=== PATIENT | male | born 1930 | race African-American/Black ===

== ENCOUNTER 2017-10-18 20:24 | Emergency (ER) | payer OTHER ==
[~2017-10-18] VITALS: Ht 188 cm; Wt 98.0 kg
[2017-10-18] MEDS ORDERED: SODIUM CHLORIDE 0.9% 1,000 ML IV ONE (20:39)
[2017-10-18] MEDS ORDERED: ONDANSETRON HCL 4MG/2ML VIAL IV STA (20:39)
[2017-10-18] MEDS ORDERED: MORPHINE SULFATE 4 MG/ML CPJ (NOT FOR IM USE) IV STA (20:39)
[2017-10-18 21:19] LABS: HEMATOCRIT. 36.3 % (42.0-52.0); HEMOGLOBIN. 11.8 g/dL (14.0-18.0); MEAN CORPUSCULAR HEMOGLOBIN 29.8 pg (28.0-32.0); MEAN CORPUSCULAR VOLUME 91.6 fL (80.0-94.0); MEAN PLATELET VOLUME 7.4 fl (7.4-10.4); RED BLOOD CELL COUNT 3.96 mill/uL (4.7-6.1); RED CELL DISTRIBUTION WIDTH 16.4 % (11.6-14.6)
[2017-10-18 21:22] LABS: CHLORIDE 103 mEq/L (98-107); INR 1.1; PROTHROMBIN TIME 11.4 sec (9.4-11.6)
[2017-10-18 21:25] LABS: CARBON DIOXIDE 28 mEq/L (21-32)
[2017-10-18 21:30] LABS: ETHANOL BLOOD 24 mg/dL; PLATELET 1456 x1000/uL (130-400)
[2017-10-18 21:33] LABS: TROPONIN I < 0.02 ng/mL (0.00-0.04)
[2017-10-18 21:55] LABS: ATYPICAL LYMPHOCYTES 1
[2017-10-18 21:56] LABS: PLATELET ESTIMATE MARKEDLY INCREASED
[2017-10-18] MEDS ORDERED: ASPIRIN 325MG TABLET PO NR (23:30)
[2017-10-19 00:41] VITALS: BP 152/66
== END 2017-10-19 00:45 | disposition home or self-care (01) ==
LOC: ER 21:10
DX: S16.1XXA Strain of muscle, fascia and tendon at neck level, initial encounter (principal); D47.3 Essential (hemorrhagic) thrombocythemia; M47.812 Spondylosis without myelopathy or radiculopathy, cervical region; M48.02 Spinal stenosis, cervical region; F12.10 Cannabis abuse, uncomplicated; R51 Headache; I10 Essential (primary) hypertension; E03.9 Hypothyroidism, unspecified; M89.8X8 Other specified disorders of bone, other site; Z79.82 Long term (current) use of aspirin; Z86.73 Personal history of transient ischemic attack (TIA), and cerebral infarction without residual deficits; Z96.649 Presence of unspecified artificial hip joint; Z95.0 Presence of cardiac pacemaker; Z96.659 Presence of unspecified artificial knee joint; X50.1XXA Overexertion from prolonged static or awkward postures, initial encounter; Y93.B9 Activity, other involving muscle strengthening exercises; Y92.89 Other specified places as the place of occurrence of the external cause; Y99.8 Other external cause status
CPT/HCPCS: 36415; 70450; 71010; 72125; 80053; 83605; 84484; 85025; 85610; 93005; 96361; 96374; 96375; 99285; G0482; J2270; J2405; J7040; J7030